=== PATIENT | male | born 1945 | race Caucasian/White ===

== ENCOUNTER 2023-08-17 03:04 | Emergency (ER) | payer MEDICARE, OTHER, SELFPAY ==
[2023-08-17 02:56] VITALS: BP 146/114; PULSE 78; RESP 17; TEMP 36.7; O2SAT 98
--- NOTE | 2023-08-17 02:56 | ED.GENADUL_ITS ---
Discharge Plan Disposition Patient Disposition: Home Condition: Good Discharge Details Clinical Impression: Dementia ED Provider: Matt Kilpatrick Discharge Instructions Instructions: Caring for someone with Alzheimer disease or dementia, Time to stop driving? Additional Instructions: You should not be driving. Please follow-up with primary care. HPI General Mode of arrival: EMS . Date/Time Provider Initiated Documentation: 08/17/23 03:14 . Limitations to Documentation: other (Dementia) . Information obtained by: patient, family and EMS . HPI Narrative: Patient presents to ED by EMS after he was pulled over by [employer]. Per report from EMS he apparently stole his 's vehicle. He told police that he was going to the hardware store. Apparently, does have a valid [employer] driver's license but is not supposed to be driving because of memory problems, likely dementia. is reportedly picking up the car and then coming here. Patient has no complaints. He knows who he is and that he is at a hospital. He denies any type of pain, illness, problems. He has noted to have a Band-Aid over his left eye. He reports that he fell last week. Review of Systems Unobtainable due to (Dementia) Exam Narrative Exam Narrative: Const: Thin elderly male in NAD. VS per triage. HEENT: NC. Ecchymosis around the left eye which appears old. Neck: Supple. Trachea midline. Lungs: Normal respiratory effort. Lungs are clear. Cor: RRR without murmur. Good radial pulses. GI: Soft/ND/NT. Neuro: A+O x 2. Normal speech, mentation, gait. Cranial nerves II - XII grossly intact. No gross motor or sensory deficit. Ext: No C/C/E. Medical Decision Making Patient is brought into ED by EMS after [facility] stopped him. Patient has no complaints of. State police had already called the who is now going to get her car and then will be coming here. reports that this is not new behavior. While he does have a license he has not driven in over 2 years. She typically knows when he is up and about because her dogs bark. Somehow he got out without her knowing tonight. She does confirm that he fell about a week ago. She confirms that he is his baseline at this time. He has had no recent illnesses. She is comfortable taking him back home. Recommend follow-up with primary care. Quality:SDOH Health Related Social Needs: No Data to Display PFSH All Active Problems (Updated 08/17/23 @ 03:59 by Matt Kilpatrick MD) Dementia (Chronic) Social History Smoking risk assessment performed?: No Substance use type: does not use
[2023-08-17 03:26] VITALS: BP 140/100; PULSE 78; RESP 15; TEMP 36.6; O2SAT 98
== END 2023-08-17 04:07 | disposition home or self-care (01) ==
LOC: ER 06:39
PROVIDERS: Emergency Provider Emergency Medicine; PCP Nurse Practitioner Adult Health
DX: F03.90 Unspecified dementia, unspecified severity, without behavioral disturbance, psychotic disturbance, mood disturbance, and anxiety (principal)
CPT/HCPCS: 99283; 99282